=== PATIENT | male | born 1945 | race African-American/Black ===

== ENCOUNTER 2017-04-01 22:52 | Emergency (ER) | payer MEDICARE, OTHER ==
[~2017-04-01] VITALS: Ht 172.7 cm; Wt 61.0 kg
[~2017-04-01 22:52] MED LIST: BP MEDS; UNK MEDS
[2017-04-02] MEDS ORDERED: ACETAMINOPHEN 500MG TABLET PO ONE (00:30)
[2017-04-02 03:11] VITALS: BP 140/86
== END 2017-04-02 03:11 | disposition home or self-care (01) ==
LOC: ER 22:52
DX: M54.2 Cervicalgia (principal); M54.9 Dorsalgia, unspecified
CPT/HCPCS: 72125; 99284

== ENCOUNTER 2022-11-06 16:18 | Emergency (ER) | payer MEDICARE, OTHER ==
[~2022-11-06] VITALS: Ht 172.7 cm; Wt 63.0 kg
[2022-11-06 16:25] VITALS: BP 113/74; PULSE 85; RESP 17; TEMP 97.9; O2SAT 98
== END 2022-11-06 18:12 | disposition home or self-care (01) ==
LOC: ER 16:18
DX: M67.48 Ganglion, other site (principal); I10 Essential (primary) hypertension
CPT/HCPCS: 99281

== ENCOUNTER 2022-12-15 11:37 | Emergency (ER) | payer MEDICARE, OTHER ==
[~2022-12-15] VITALS: Ht 175.3 cm; Wt 62.0 kg
[2022-12-15 11:51] VITALS: O2SAT 98
[2022-12-15 11:56] VITALS: BP 145/77; PULSE 84; TEMP 97.8
[2022-12-15] MEDS ORDERED: MUPI1OIN4 TP (12:09)
== END 2022-12-15 12:20 | disposition home or self-care (01) ==
LOC: ER 11:50
DX: R21 Rash and other nonspecific skin eruption (principal); I10 Essential (primary) hypertension
CPT/HCPCS: 99281; 99283